=== PATIENT | male | born 1935 | race Caucasian/White ===

== ENCOUNTER 2019-08-04 10:40 | Outpatient (CLI) | payer MEDICARE, MEDICAID, SELFPAY ==
--- NOTE | ~2019-08-04 | US_ITS ---
EXAMINATION: US carotid duplex BI DATE: 08/04/2019 11:44 INDICATION: Carotid stenosis. TECHNIQUE: Grayscale, color Doppler, and pulsed Doppler images of the cervical carotid arteries were obtained. The degree of vessel stenosis is placed in one of the following categories: normal, <50%, 5 0-69%, >=70% but less than near-occlusion, near-occlusion, or total occlusion. Note that percent sten osis relative to normal distal artery lumen diameter is indirectly measured from velocity measurement s as described by Adrian, et al. Radiology 2003; [id number]. COMPARISON: Ultrasound 07/16/2018 FINDINGS: RIGHT: The right common carotid artery (CCA) peak systolic velocity (PSV) is 78 cm/s. The right internal car otid artery (ICA) PSV is 151 cm/s. The right ICA end-diastolic velocity (EDV) is 35 cm/s. The right I CA/CCA PSV ratio is 2.0. Grayscale and color Doppler images yield an estimate of >=50% diameter reduc tion from plaque in the ICA. There is antegrade flow in the right vertebral artery. LEFT: The left CCA PSV is 95 cm/s. The left ICA PSV is 99 cm/s. The left ICA EDV is 22 cm/s. The left ICA/C CA PSV ratio is 1.1. Grayscale and color Doppler images yield an estimate of <50% diameter reduction from plaque in the ICA. There is antegrade flow in the left vertebral artery. IMPRESSION: 1. 50-69% stenosis in the right internal carotid artery. 2. <50% stenosis in the left internal carotid artery. Reviewed, dictated and finalized at location A. ING GUIDE
== END 2019-08-04 10:41 | disposition home or self-care (01) ==
PROVIDERS: PCP Family Medicine; Visit Provider Internal Medicine Cardiovascular Disease
DX: I65.23 Occlusion and stenosis of bilateral carotid arteries (principal)
CPT/HCPCS: 93880

== ENCOUNTER 2020-08-21 10:15 | Outpatient (CLI) | payer MEDICARE, SELFPAY ==
--- NOTE | ~2020-08-21 | US_ITS ---
EXAMINATION: US carotid duplex BI DATE: 08/21/2020 10:49 INDICATION: Carotid stenosis. TECHNIQUE: Grayscale, color Doppler, and pulsed Doppler images of the cervical carotid arteries were obtained. The degree of vessel stenosis is placed in one of the following categories: normal, <50%, 5 0-69%, >=70% but less than near-occlusion, near-occlusion, or total occlusion. Note that percent sten osis relative to normal distal artery lumen diameter is indirectly measured from velocity measurement s as described by Adrian, et al. Radiology 2003; [id number]. COMPARISON: Ultrasound 08/04/2019 FINDINGS: RIGHT: The right common carotid artery (CCA) peak systolic velocity (PSV) is 69 cm/s. The right internal car otid artery (ICA) PSV is 170 cm/s. The right ICA end-diastolic velocity (EDV) is 53 cm/s. The right I CA/CCA PSV ratio is 2.5. Grayscale and color Doppler images yield an estimate of >=50% diameter reduc tion from plaque in the ICA. There is antegrade flow in the right vertebral artery. LEFT: The left CCA PSV is 75 cm/s. The left ICA PSV is 152 cm/s. The left ICA EDV is 41 cm/s. The left ICA/ CCA PSV ratio is 2.0. Grayscale and color Doppler images yield an estimate of <50% diameter reduction from plaque in the ICA. There is antegrade flow in the left vertebral artery. IMPRESSION: 1. 50-69% stenosis in the right internal carotid artery. 2. <50% stenosis in the left internal carotid artery. Reviewed, dictated and finalized at location A.
== END 2020-08-21 10:16 | disposition home or self-care (01) ==
PROVIDERS: PCP Family Medicine; Visit Provider Internal Medicine Cardiovascular Disease
DX: I65.23 Occlusion and stenosis of bilateral carotid arteries (principal)
CPT/HCPCS: 93880

== ENCOUNTER 2020-09-03 09:00 | Emergency (ER) | payer MEDICARE, SELFPAY ==
[2020-09-03 09:20] VITALS: BP 138/58; PULSE 65; RESP 20; TEMP 36.7; O2SAT 100
--- NOTE | 2020-09-03 09:20 | ED.EAR ---
HPI - Ear Problem General Chief complaint: Ear Stated complaint: Ear Clogged Time Seen by Provider: 09/03/20 09:23 Source: patient, RN notes reviewed and old records reviewed Mode of arrival: ambulatory Limitations: no limitations History of Present Illness HPI Narrative: 85 year old male who presents ambulatory to [facility] care with complaints of not being able to hear from his left ear. Patient states that he had previous sinus infection and was started on Augmentin antibiotic about 8 days ago and also Flonase which has resolved his sinus issues. He states that his right ear no longer feels clogged but his left ear continues to feel clogged with decrease in hearing.Patient denies any pain to his ears, no sore throat or any other ill symptoms. MD Complaint: decreased hearing Location: left ear Duration: constant Context: Reports recent illness Associated symptoms ear: decreased hearing Treatment prior to arrival: other (put peroxide in his left ear.) Related Data Home Medications Medication Instructions Recorded Confirmed aspirin 325 mg tablet 325 mg PO DAILY 06/27/20 09/03/20 cholecalciferol (vitamin D3) 50 50 mcg PO DAILY 06/27/20 09/03/20 mcg (2,000 unit) capsule mecobalamin (vitamin B12) 5,000 5,000 mcg PO DAILY 06/27/20 09/03/20 mcg disintegrating tablet nitroglycerin 0.4 mg sublingual 0.4 mg SUBLINGUAL Q5M PRN 06/27/20 09/03/20 tablet amoxicillin-pot clavulanate 1 tablet PO USEASDIRECTD 09/03/20 09/03/20 finasteride 5 mg PO DAILY 09/03/20 09/03/20 fluticasone propionate 1 spray INTRANASAL DAILY 09/03/20 09/03/20 lisinopril 30 mg PO DAILY 09/03/20 09/03/20 metformin 1,000 mg PO BID 09/03/20 09/03/20 Allergies Allergy/AdvReac Type Severity Reaction Status Date / Time No Known Allergies Allergy Verified 09/03/20 09:08 Review of Systems Review of Systems: Narrative: CONSTITUTIONAL: Denies fever, chills, or sweats. EYES: Denies visual changes, redness, or discharge. ENT: Denies rhinorrhea, congestion, sore throat, or otalgia, states that he can't hear out of his left ear CARDIOVASCULAR: Denies chest pain, palpitations, or edema. RESPIRATORY: Denies cough or dyspnea. GASTROINTESTINAL: Denies abdominal pain, nausea, vomiting, or diarrhea. GENITOURINARY: Denies dysuria or hematuria. SKIN: Denies rash or itching. MUSCULOSKELETAL: Denies back pain, joint pain, or myalgia. NEUROLOGIC: Denies headache, numbness, or weakness. PSYCHIATRIC: Denies anxiety or depression. 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, unspecified eye Type II diabetes mellitus with peripheral angiopathy Vitamin D deficiency Surgical History Surgical History H/O eye surgery S/P inguinal herniorrhaphy Family History Family History Mother Family history of malignant neoplasm of breast in first degree relative Father Family history of alcoholism Family history of coronary artery disease Other Family history of malignant neoplasm of breast Social History Social History (Updated 09/03/20 @ 09:57 by Talia Huerta NP) Smoking packs per day: 0.25 Smoking cigarettes per day: 5.0 Years smoked: 30 Smoking pack-years: 7.50 Smoking status: Former smoker Tobacco type: cigarettes Second hand tobacco smoke exposure: No Smoking end date: 06/08/89 Alcohol intake: former Substance use: never Substance use type: does not use Living arrangements: alone Gender
[2020-09-03 09:36] VITALS: BP 138/58; PULSE 65; RESP 20; TEMP 36.7; O2SAT 100
== END 2020-09-03 10:05 | disposition home or self-care (01) ==
PROVIDERS: Emergency Provider Registered Nurse; PCP Family Medicine
DX: H61.23 Impacted cerumen, bilateral (principal); F17.210 Nicotine dependence, cigarettes, uncomplicated; I10 Essential (primary) hypertension; E78.2 Mixed hyperlipidemia; E11.42 Type 2 diabetes mellitus with diabetic polyneuropathy; M1A.00X0 Idiopathic chronic gout, unspecified site, without tophus (tophi); I35.0 Nonrheumatic aortic (valve) stenosis; E11.51 Type 2 diabetes mellitus with diabetic peripheral angiopathy without gangrene; I65.21 Occlusion and stenosis of right carotid artery
CPT/HCPCS: 69210; 99212; G0463

== ENCOUNTER 2021-07-01 11:04 | Emergency (ER) | payer OTHER, SELFPAY ==
[2021-07-01 11:12] VITALS: BP 135/59; PULSE 59; RESP 16; TEMP 36.3; O2SAT 98
--- NOTE | 2021-07-01 11:12 | ED.EAR ---
HPI - Ear Problem General Chief complaint: Ear Stated complaint: Ear Pain Time Seen by Provider: 07/01/21 11:15 Source: patient and RN notes reviewed Mode of arrival: ambulatory Limitations: no limitations History of Present Illness HPI Narrative: 86-year-old male presents with concern for a clogged ear. He reports he has been using at home remedies for clogged ear but it still feels clogged. He reports symptoms seem worse on the left than the right. He denies pain, discharge. MD Complaint: other (Clogged ear) Related Data Home Medications Medication Instructions Recorded Confirmed aspirin 325 mg tablet 325 mg PO DAILY 06/27/20 01/31/21 cholecalciferol (vitamin D3) 50 50 mcg PO DAILY 06/27/20 01/31/21 mcg (2,000 unit) capsule mecobalamin (vitamin B12) 5,000 5,000 mcg PO DAILY 06/27/20 01/31/21 mcg disintegrating tablet nitroglycerin 0.4 mg sublingual 0.4 mg SUBLINGUAL Q5M PRN 06/27/20 01/31/21 tablet finasteride 5 mg PO DAILY 09/03/20 01/31/21 metformin 1,000 mg tablet 1,000 mg PO DAILY tablet 01/31/21 01/31/21 Allergies Allergy/AdvReac Type Severity Reaction Status Date / Time No Known Allergies Allergy Verified 01/31/21 11:09 Review of Systems Review of Systems: CONSTITUTIONAL: Denies malaise, chills, sweats, or fever. EYES: Denies visual changes, redness, or discharge. ENT: Denies rhinorrhea, congestion, sinus pain, and sore throat. Reports ears clogged CARDIOVASCULAR: Denies chest pain, palpitations, or edema. RESPIRATORY: Denies cough. Denies dyspnea. GASTROINTESTINAL: Denies abdominal pain, nausea, vomiting, diarrhea SKIN: Denies rash or itching. MUSCULOSKELETAL: Denies myalgia. NEUROLOGIC: Denies headache. 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, unspecified eye Type II diabetes mellitus with peripheral angiopathy Vitamin D deficiency Surgical History Surgical History H/O eye surgery S/P inguinal herniorrhaphy Family History Family History Mother Family history of malignant neoplasm of breast in first degree relative Father Family history of alcoholism Family history of coronary artery disease Other Family history of malignant neoplasm of breast Social History Social History Smoking packs per day: 0.25 Smoking cigarettes per day: 5.0 Years smoked: 30 Smoking pack-years: 7.50 Tobacco type: cigarettes Second hand tobacco smoke exposure: No Smoking end date: 06/08/89 Alcohol intake: former Substance use: never Substance use type: does not use Gender identity (if verbalized by the patient): Male Comments At time of signature, agree with nursing past medical, surgical, social and family history. There is no relevant family history pertinent to the presenting complaint Exam Narrative: GENERAL: Well-appearing, well-nourished, and in no acute distress. HEAD: Normocephalic EYES: PERRLA, conjunctivae clear ENT: Nares clear. Mucous membranes moist. Left TM pearly larson with dull light reflex, right TM not visible due to excess cerumen NECK: Supple. CHEST: No respiratory distress, speaks in full sentences. HEART: Regular rate and rhythm. No murmur heard. SKIN: Warm, dry, no rash. NEURO: Alert and oriented x3. PSYCH: Normal mood and affect Course Course Emergency Course: Patient is aware of diagnosis, understands and agrees to t
== END 2021-07-01 11:45 | disposition home or self-care (01) ==
PROVIDERS: Emergency Provider Nurse Practitioner; PCP Family Medicine
DX: H61.21 Impacted cerumen, right ear (principal); Z87.891 Personal history of nicotine dependence; I10 Essential (primary) hypertension; E78.2 Mixed hyperlipidemia; M10.9 Gout, unspecified; I35.0 Nonrheumatic aortic (valve) stenosis; M85.80 Other specified disorders of bone density and structure, unspecified site; I65.21 Occlusion and stenosis of right carotid artery; E11.51 Type 2 diabetes mellitus with diabetic peripheral angiopathy without gangrene; E55.9 Vitamin D deficiency, unspecified
CPT/HCPCS: 69210; 99212; G0463

== ENCOUNTER 2021-07-13 11:55 | Emergency (ER) | payer OTHER, SELFPAY ==
[2021-07-13 12:01] VITALS: BP 153/62; PULSE 70; RESP 14; TEMP 36.9; O2SAT 98
--- NOTE | 2021-07-13 13:20 | ED.GENADULT ---
HPI - General Adult General Chief complaint: Upper Respiratory Infection Stated complaint: sinus congestion Source: patient Mode of arrival: ambulatory Limitations: no limitations History of Present Illness HPI narrative: Patient presents for evaluation of sinus congestion for many months. He indicates he has used Flonase in the past but is no longer using it. He states he is using another type of [id number] nasal preparation which seems to help. He states that he went to the ER in the past and was given some type of oral antihistamine which seemed to help. He is requesting that today. No fever, chills, nausea, vomiting, sore throat, respiratory symptoms, nasal drainage. He is diabetic but BS are controlled at average of 100 on metformin. No recent sick contacts. No personal hx of COVID. He has not received COVID vaccination. No additional complaints or concerns. Related Data Home Medications Medication Instructions Recorded Confirmed aspirin 325 mg tablet 325 mg PO DAILY 06/27/20 07/13/21 cholecalciferol (vitamin D3) 50 50 mcg PO DAILY 06/27/20 07/13/21 mcg (2,000 unit) capsule mecobalamin (vitamin B12) 5,000 5,000 mcg PO DAILY 06/27/20 07/13/21 mcg disintegrating tablet nitroglycerin 0.4 mg sublingual 0.4 mg SUBLINGUAL Q5M PRN 06/27/20 07/13/21 tablet finasteride 5 mg PO DAILY 09/03/20 07/13/21 metformin 1,000 mg tablet 1,000 mg PO DAILY tablet 01/31/21 07/13/21 Allergies Allergy/AdvReac Type Severity Reaction Status Date / Time No Known Allergies Allergy Verified 01/31/21 11:09 Review of Systems Review of Systems: CONSTITUTIONAL: Denies fever, chills, or sweats. EYES: Denies visual changes, redness, or discharge. ENT: Reports sinus congestion. Denies rhinorrhea, sore throat, or otalgia. CARDIOVASCULAR: Denies chest pain, palpitations, or edema. RESPIRATORY: Denies cough or dyspnea. GASTROINTESTINAL: Denies abdominal pain, nausea, vomiting, or diarrhea. GENITOURINARY: Denies dysuria or hematuria. SKIN: Denies rash or itching. MUSCULOSKELETAL: Denies back pain, joint pain, or myalgia. NEUROLOGIC: Denies headache, numbness, dizziness, or weakness. PSYCHIATRIC: Denies anxiety or depression. 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, unspecified eye Type II diabetes mellitus with peripheral angiopathy Vitamin D deficiency Surgical History Surgical History H/O eye surgery S/P inguinal herniorrhaphy Family History Family History Mother Family history of malignant neoplasm of breast in first degree relative Father Family history of alcoholism Family history of coronary artery disease Other Family history of malignant neoplasm of breast Social History Social History Smoking packs per day: 0.25 Smoking cigarettes per day: 5.0 Years smoked: 30 Smoking pack-years: 7.50 Tobacco type: cigarettes Second hand tobacco smoke exposure: No Smoking end date: 06/08/89 Alcohol intake: former Substance use: never Substance use type: does not use Gender identity (if verbalized by the patient): Male Exam Narrative: GENERAL: Well-appearing, well-nourished, and in no acute distress. HEAD: Normocephalic, atraumatic. EYES: PERRLA and EOMI. ENT: Nares clear, no rhinorrhea or epistaxis. Mucous membranes moist. Oropharynx without tonsillar hypertrophy exudate or other lesions. Bilateral TMs pearly larson nonbulging NECK:
== END 2021-07-13 13:33 | disposition home or self-care (01) ==
PROVIDERS: Emergency Provider Nurse Practitioner; PCP Family Medicine
DX: J30.89 Other allergic rhinitis (principal); Z20.822 Contact with and (suspected) exposure to COVID-19; F17.210 Nicotine dependence, cigarettes, uncomplicated; I10 Essential (primary) hypertension; E78.2 Mixed hyperlipidemia; I35.0 Nonrheumatic aortic (valve) stenosis; M81.0 Age-related osteoporosis without current pathological fracture; I73.9 Peripheral vascular disease, unspecified; I65.21 Occlusion and stenosis of right carotid artery; E11.42 Type 2 diabetes mellitus with diabetic polyneuropathy; Z79.82 Long term (current) use of aspirin
CPT/HCPCS: 87426; 87804; 99213; C9803; G0463

== ENCOUNTER 2021-07-15 17:20 | Emergency (ER) | payer OTHER, SELFPAY ==
[2021-07-15 17:36] VITALS: BP 146/57; PULSE 65; RESP 16; TEMP 37.4; O2SAT 100
--- NOTE | 2021-07-15 18:16 | ED.GENADULT ---
HPI - General Adult General Chief complaint: Upper Respiratory Infection Stated complaint: Congestion Time Seen by Provider: 07/15/21 18:16 Source: patient History of Present Illness HPI narrative: Patient is here with full questions regarding tests that were done when he was here last visit. Patient wanted to make sure that he had a negative COVID-19 and a negative influenza test at that time. Patient states he is getting much better and his nasal congestion is much improved with the Singulair. Patient denies any new complaints and is just here for reassurance that his tests were negative. Related Data Home Medications Medication Instructions Recorded Confirmed aspirin 325 mg tablet 325 mg PO DAILY 06/27/20 07/15/21 cholecalciferol (vitamin D3) 50 50 mcg PO DAILY 06/27/20 07/15/21 mcg (2,000 unit) capsule mecobalamin (vitamin B12) 5,000 5,000 mcg PO DAILY 06/27/20 07/15/21 mcg disintegrating tablet nitroglycerin 0.4 mg sublingual 0.4 mg SUBLINGUAL Q5M PRN 06/27/20 07/15/21 tablet finasteride 5 mg PO DAILY 09/03/20 07/15/21 metformin 1,000 mg tablet 1,000 mg PO DAILY tablet 01/31/21 07/15/21 Allergies Allergy/AdvReac Type Severity Reaction Status Date / Time No Known Allergies Allergy Verified 07/15/21 17:52 Review of Systems Review of Systems: CONSTITUTIONAL: Denies fever, chills, or sweats. EYES: Denies visual changes, redness, or discharge. ENT: Denies rhinorrhea, congestion, sore throat, or otalgia. CARDIOVASCULAR: Denies chest pain, palpitations, or edema. RESPIRATORY: Denies cough or dyspnea. GASTROINTESTINAL: Denies abdominal pain, nausea, vomiting, or diarrhea. GENITOURINARY: Denies dysuria or hematuria. SKIN: Denies rash or itching. MUSCULOSKELETAL: Denies back pain, joint pain, or myalgia. NEUROLOGIC: Denies headache, numbness, or weakness. PSYCHIATRIC: Denies anxiety or depression. Allergic/Immunologic: Comments: At time of signature, agree with nursing past medical, surgical, social and family history. 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, unspecified eye Type II diabetes mellitus with peripheral angiopathy Vitamin D deficiency Surgical History Surgical History H/O eye surgery S/P inguinal herniorrhaphy Family History Family History Mother Family history of malignant neoplasm of breast in first degree relative Father Family history of alcoholism Family history of coronary artery disease Other Family history of malignant neoplasm of breast Social History Social History Smoking packs per day: 0.25 Smoking cigarettes per day: 5.0 Years smoked: 30 Smoking pack-years: 7.50 Tobacco type: cigarettes Second hand tobacco smoke exposure: No Smoking end date: 06/08/89 Alcohol intake: former Substance use: never Substance use type: does not use Gender identity (if verbalized by the patient): Male Exam Narrative: GENERAL: Well-appearing, well-nourished, and in no acute distress. HEAD: Normocephalic, atraumatic. EYES: PERRLA and EOMI. ENT: Nares clear, no rhinorrhea or epistaxis. Mucous membranes moist. NECK: Supple. CHEST: Clear to auscultation. No respiratory distress. HEART: Regular rate and rhythm. No murmur heard. Normal peripheral pulses. ABDOMEN: Soft, nontender, nondistended, normal active bowel sounds. EXTREMITIES
== END 2021-07-15 18:21 | disposition home or self-care (01) ==
PROVIDERS: Emergency Provider Nurse Practitioner Family; PCP Family Medicine
DX: J06.9 Acute upper respiratory infection, unspecified (principal); F17.210 Nicotine dependence, cigarettes, uncomplicated; I10 Essential (primary) hypertension; E78.2 Mixed hyperlipidemia; M81.0 Age-related osteoporosis without current pathological fracture; I73.9 Peripheral vascular disease, unspecified; I65.21 Occlusion and stenosis of right carotid artery; E11.42 Type 2 diabetes mellitus with diabetic polyneuropathy; E55.9 Vitamin D deficiency, unspecified; Z79.82 Long term (current) use of aspirin; M10.00 Idiopathic gout, unspecified site; I35.0 Nonrheumatic aortic (valve) stenosis
CPT/HCPCS: 99211; G0463

== ENCOUNTER 2021-08-20 17:12 | Emergency (ER) | payer OTHER, SELFPAY ==
--- NOTE | 2021-08-20 17:16 | ED.URI ---
HPI - URI/Sore Throat General Chief Complaint: Upper Respiratory Infection Stated Complaint: blockage of sinuses with nose Time Seen by Provider: 08/20/21 17:17 Source: patient and RN notes reviewed History of Present Illness HPI Narrative: Patient is 86-year-old male who presents the urgent care with complaints of nasal inflammation/blockage. Patient states that he has been dealing with this for the last month and is used several different nasal sprays. Patient states that he is currently using a nasal spray that you can use as needed . Patient states that it has helped the left nare but not the right. Patient states he is having difficulty breathing due to the nasal inflammation. Denies of any fever or other upper respiratory complaints. No other acute complaints. No acute distress noted. Patient aware of the plan of care. Some parts of this dictation were generated by voice recognition software and may contain typographical and/or grammatical inaccuracies. Related Data Home Medications Medication Instructions Recorded Confirmed aspirin 325 mg tablet 325 mg PO DAILY 06/27/20 08/20/21 cholecalciferol (vitamin D3) 50 50 mcg PO DAILY 06/27/20 08/20/21 mcg (2,000 unit) capsule mecobalamin (vitamin B12) 5,000 5,000 mcg PO DAILY 06/27/20 08/20/21 mcg disintegrating tablet nitroglycerin 0.4 mg sublingual 0.4 mg SUBLINGUAL Q5M PRN 06/27/20 08/20/21 tablet finasteride 5 mg PO DAILY 09/03/20 08/20/21 Allergies Allergy/AdvReac Type Severity Reaction Status Date / Time No Known Allergies Allergy Verified 08/20/21 17:27 Review of Systems Review of Systems: CONSTITUTIONAL: Denies fever, chills, or sweats. EYES: Denies visual changes, redness, or discharge. ENT: Denies rhinorrhea, congestion, sore throat, or otalgia. Reports of nasal inflammation CARDIOVASCULAR: Denies chest pain, palpitations, or edema. RESPIRATORY: Denies cough or dyspnea. GASTROINTESTINAL: Denies abdominal pain, nausea, vomiting, or diarrhea. GENITOURINARY: Denies dysuria or hematuria. SKIN: Denies rash or itching. MUSCULOSKELETAL: Denies back pain, joint pain, or myalgia. NEUROLOGIC: Denies headache, numbness, or weakness. All other systems reviewed are negative, except as documented in HPI. 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, unspecified eye Type II diabetes mellitus with peripheral angiopathy Vitamin D deficiency Surgical History Surgical History H/O eye surgery S/P inguinal herniorrhaphy Family History Family History Mother Family history of malignant neoplasm of breast in first degree relative Father Family history of alcoholism Family history of coronary artery disease Other Family history of malignant neoplasm of breast Social History Social History Smoking packs per day: 0.25 Smoking cigarettes per day: 5.0 Years smoked: 30 Smoking pack-years: 7.50 Tobacco type: cigarettes Second hand tobacco smoke exposure: No Smoking end date: 06/08/89 Alcohol intake: former Substance use: never Substance use type: does not use Gender identity (if verbalized by the patient): Male Comments At the time of my signature, I reviewed and agree with the nursing past medical, surgical, social, and family history. There is no relevant family history pertinent to the patient complaint. Exam Narrative: GENERAL: This is a well-nourished, well-developed
[2021-08-20 17:23] VITALS: BP 151/60; PULSE 70; RESP 16; TEMP 36.9; O2SAT 100
[2021-08-20 17:29] VITALS: BP 151/60; PULSE 70; RESP 16; TEMP 36.9; O2SAT 100
== END 2021-08-20 17:49 | disposition home or self-care (01) ==
PROVIDERS: Emergency Provider Nurse Practitioner Family; PCP Family Medicine
DX: J30.9 Allergic rhinitis, unspecified (principal); Z87.891 Personal history of nicotine dependence; I10 Essential (primary) hypertension; M10.00 Idiopathic gout, unspecified site; D50.9 Iron deficiency anemia, unspecified; E78.2 Mixed hyperlipidemia; I35.0 Nonrheumatic aortic (valve) stenosis; M85.80 Other specified disorders of bone density and structure, unspecified site; I73.9 Peripheral vascular disease, unspecified; I65.21 Occlusion and stenosis of right carotid artery; E11.42 Type 2 diabetes mellitus with diabetic polyneuropathy; E55.9 Vitamin D deficiency, unspecified
CPT/HCPCS: 99213; G0463

== ENCOUNTER 2021-08-26 14:09 | Outpatient (CLI) | payer OTHER, SELFPAY ==
[2021-08-26 14:30] LABS: Basophils Percent Auto 0.1 % (0.2-1.2); Eosinophils Percent Auto 0.4 % (0-4.4); Hematocrit 40.3 % (42.0-52.0); Hemoglobin 12.9 g/dL (14.0-18.0); Immature Granulocyte Absolute 0.06 K/mm3 (0.00-0.031); Immature Granulocyte Percent A 0.6 % (0-0.5); Immature Reticulocyte Fraction 11.8 % (3.0-15.9); Lymphocytes Absolute Auto 0.94 K/mm3 (0.9-3.2); Lymphocytes Percent Auto 8.7 % (18.3-44.2); Mean Corpuscular Hemoglobin 32.3 pg (26-34); Mean Platelet Volume 9.1 fl (7.4-10.4); Monocytes Absolute Auto 0.6 K/mm3 (0.1-0.6); Monocytes Percent Auto 5.9 % (2.6-8.5); Neutrophils Absolute Auto 9.2 K/mm3 (1.3-6.7); Neutrophils Percent Auto 84.3 % (45.5-73.1); Platelet Count Result 315 k/mm3 (150-375); Red Blood Count 3.99 M/mm3 (4.6-6.20); Red Cell Distribution Width 13.1 % (11.5-14.5); Reticulocyte Hemoglobin Conten 37.9 pg (28.2-35.7); Reticulocyte Percent 1.54 % (0.7-4.3); Reticulocytes Absolute 0.06 B/L (32.2-175.7); White Blood Count 10.9 K/mm3 (4.5-10.0)
[2021-08-26 17:38] LABS: Iron 86 ug/dL (49-181)
[2021-08-26 17:40] LABS: Alanine Aminotransferase 40 U/L (4-50); Albumin Level 4.4 g/dL (3.5-5.1); Alkaline Phosphatase 64 U/L (38-126); Anion Gap 5 mmol/L (8-16); Aspartate Amino Transferase 36 U/L (17-59); Bilirubin,Total 0.4 mg/dL (0.2-1.3); Blood Urea Nitrogen 21 mg/dL (9-20); Calcium 9.4 mg/dL (8.4-10.2); Carbon Dioxide 31 mmol/L (22-30); Chloride 102 mmol/L (98-107); Estimated Glomerular Filt Rate 58; Glucose 162 mg/dL (65-110); Potassium 4.5 mmol/L (3.4-5.0); Sodium 138 mmol/L (137-145)
[2021-08-26 18:03] LABS: Percent Iron Saturation 23 % (20-50)
[2021-08-26 18:59] LABS: Folic Acid 12.3 ng/mL (2.76->20)
[2021-08-30 16:32] LABS: Methylmalonic Acid 401 nmol/L (87-318)
== END 2021-08-26 14:10 | disposition home or self-care (01) ==
LOC: ANHLAB 14:10
PROVIDERS: PCP Family Medicine; Visit Provider Internal Medicine Hematology & Oncology
DX: D64.9 Anemia, unspecified (principal)
CPT/HCPCS: 36415; 80053; 82607; 82728; 82746; 83540; 83550; 83921; 85025; 85046

== ENCOUNTER 2021-08-27 08:35 | Emergency (ER) | payer OTHER, SELFPAY ==
[2021-08-27 08:40] VITALS: BP 152/52; PULSE 77; RESP 16; TEMP 36.8; O2SAT 100
--- NOTE | 2021-08-27 08:43 | ED.URI ---
HPI - URI/Sore Throat General Chief Complaint: Upper Respiratory Infection Stated Complaint: Cough Time Seen by Provider: 08/27/21 08:53 Source: patient and RN notes reviewed Mode of arrival: ambulatory Limitations: no limitations History of Present Illness HPI Narrative: 86-year-old male presented for complaint of cough, this morning. He states he was seen here about 1 week ago, given loratadine and Medrol Dosepak which has helped his symptoms. Also states cough drops are helping this morning he notes cough and sore throat stating I could not talk also states that this time I feel so much better. He has not been vaccinated for flu or Covid. Denies chest pain, shortness of breath, wheezing, nausea, vomiting, diarrhea, fever or chills. MD elicited complaint: cough Related Data Home Medications Medication Instructions Recorded Confirmed aspirin 325 mg tablet 325 mg PO DAILY 06/27/20 08/20/21 cholecalciferol (vitamin D3) 50 50 mcg PO DAILY 06/27/20 08/20/21 mcg (2,000 unit) capsule mecobalamin (vitamin B12) 5,000 5,000 mcg PO DAILY 06/27/20 08/20/21 mcg disintegrating tablet nitroglycerin 0.4 mg sublingual 0.4 mg SUBLINGUAL Q5M PRN 06/27/20 08/20/21 tablet finasteride 5 mg PO DAILY 09/03/20 08/20/21 Allergies Allergy/AdvReac Type Severity Reaction Status Date / Time No Known Allergies Allergy Verified 08/27/21 08:55 Review of Systems Review of Systems: CONSTITUTIONAL: denies malaise, chills, sweats, fever EYES: Denies visual changes, redness, or discharge ENT: Reports rhinorrhea, congestion, sinus pain, sore throat CARDIOVASCULAR: Denies chest pain, palpitations, edema RESPIRATORY: Reports cough, post nasal drainage. 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, unspecified eye Type II diabetes mellitus with peripheral angiopathy Vitamin D deficiency Surgical History Surgical History H/O eye surgery S/P inguinal herniorrhaphy Family History Family History Mother Family history of malignant neoplasm of breast in first degree relative Father Family history of alcoholism Family history of coronary artery disease Other Family history of malignant neoplasm of breast Social History Social History Smoking packs per day: 0.25 Smoking cigarettes per day: 5.0 Years smoked: 30 Smoking pack-years: 7.50 Tobacco type: cigarettes Second hand tobacco smoke exposure: No Smoking end date: 06/08/89 Alcohol intake: former Substance use: never Substance use type: does not use Gender identity (if verbalized by the patient): Male Exam Narrative: GENERAL: well-appearing, nontoxic HEAD: Normocephalic EYES: conjunctivae clear ENT: Mucous membranes moist. TM pearly larson with dull light reflex bilaterally; no tragal tenderness. Oropharynx erythematous without lesions or exudate, no drooling, no hoarseness, no trismus, uvula midline. No tripod positioning, muffled voice, soft palate or pharyngeal wall bulging NECK: Supple. No lymphadenopathy CHEST: Clear to auscultation, breath sounds equal. No wheezing, rhonchi, rales, or stridor. No respiratory distress, speaks in full sentences. HEART: Regular rate and rhythm. No murmur heard. SKIN: Warm, dry, no rash. NEURO: Alert an
== END 2021-08-27 09:07 | disposition home or self-care (01) ==
PROVIDERS: Emergency Provider Nurse Practitioner Family; PCP Family Medicine
DX: J30.9 Allergic rhinitis, unspecified (principal); I10 Essential (primary) hypertension; E78.2 Mixed hyperlipidemia; M85.80 Other specified disorders of bone density and structure, unspecified site; I73.9 Peripheral vascular disease, unspecified; I65.21 Occlusion and stenosis of right carotid artery; E11.42 Type 2 diabetes mellitus with diabetic polyneuropathy; E55.9 Vitamin D deficiency, unspecified; F17.210 Nicotine dependence, cigarettes, uncomplicated; M10.00 Idiopathic gout, unspecified site; Z79.82 Long term (current) use of aspirin
CPT/HCPCS: 99211; G0463